=== PATIENT | female | born 1930 | race Caucasian/White ===

== ENCOUNTER → 2017-05-29 | Outpatient (CLI) | payer MEDICARE, BC ==
[~2017-05-29] MED LIST: AMITRIPTYLINE H25 M1 PO; ASPIRIN 32325 MG/TA1 PO; CALCIUM CARBON650 M1 PO; CLARITIN 1010 MG/TAB PO; COLACE 100100 MG/CAP PO; DITROPAN 5MG TAB5 MG PO; FISH OIL O1600 MG/5 PO; FLONASE NASAL S16 GM NS; LASIX 20MG TABL20 MG PO; LOTEMAX0.5% OP; MIRAPEX0.5 MG PO; MUCINEX DM 30 M1 TE1; MULTI VITAMINS1 TAB PO; NEURONTIN300 MG/CAP PO; NITRO-BID22 TOP; NORCO 325 MG-51 TAB PO; PHENERGAN W/CO120 ML PO; PREDNISONE20 MG PO; RELAFEN 50500 MG/TAB PO; RESTASIS0.05%; SINGULAIR 110 MG/TAB PO; ZOCOR 20MG20 MG PO
== END ==
LOC: MC.RAD 14:40
DX: Z12.31 Encounter for screening mammogram for malignant neoplasm of breast (principal)

== ENCOUNTER → 2018-08-29 | Outpatient (CLI) | payer MEDICARE, BC | LOC: COL.PUL 07-27 13:00 | DX: R05 Cough (principal) ==